=== PATIENT | male | born 1990 | race Two or more races ===

== ENCOUNTER 2017-07-06 18:32 | Emergency (ER) | payer OTHER ==
[2017-07-06 19:00] LABS: APPEARANCE,URINE CLEAR; BILIRUBIN,URINE NEGATIVE (NEGATIVE); GLUCOSE, URINE NEGATIVE (NEGATIVE); KETONES,URINE 20 mg/dL (NEGATIVE); LEUKOCYTE ESTERASE,URINE NEGATIVE (NEGATIVE); NITRITE,URINE NEGATIVE (NEGATIVE); PROTEIN,URINE 30 mg/dL (NEGATIVE); URINE SPECIFIC GRAVITY 1.009
[2017-07-06] MEDS ORDERED: NORMAL SALINE 1000 ML 1,000 ML IV ONE (19:28)
--- NOTE | 2017-07-06 19:29 | ER Document Report ---
ED Medical Screen (RME) - General Chief Complaint: Flank Pain Stated Complaint: ABDOMINAL PAIN Time Seen by Provider: 07/06/17 19:28 Notes: Patient reports left flank pain that was severe last night. He states he had similar pain about 1 month ago and was seen in urgent care. He says they diagnosed him with an infection but is unsure where the infection was. He states he was given ciprofloxacin and has felt better until several days ago. Patient states he has had some nausea but no vomiting or diarrhea. No previous abdominal surgeries. TRAVEL OUTSIDE OF THE [place] IN LAST 30 DAYS: No - Related Data Allergies/Adverse Reactions: No Known Allergies Allergy (Verified 07/06/17 18:40) Past Medical History - Social History Chew tobacco use (# tins/day): No Frequency of alcohol use: weekends Drug Abuse: None Renal/ Medical History: Denies: Hx Peritoneal Dialysis Physical Exam - Vital signs Vitals: Temp Pulse Resp BP Pulse Ox 100.4 F 130 H 22 H 184/119 H 96 07/06/17 18:37 07/06/17 18:37 07/06/17 18:37 07/06/17 18:37 07/06/17 18:37 Course - Vital Signs Vital signs: Temp Pulse Resp BP Pulse Ox 100.4 F 130 H 22 H 184/119 H 96 07/06/17 18:37 07/06/17 18:37 07/06/17 18:37 07/06/17 18:37 07/06/17 18:37 - Laboratory Laboratory results interpreted by me: 07/06/17 18:40 Urine Protein 30 H Urine Ketones 20 H Urine Blood SMALL H Urine Urobilinogen 2.0 H
[2017-07-06 20:14] LABS: VENOUS BLOOD BASE EXCESS 2.8 mmol/L; VENOUS BLOOD HCO3 24.5 mmol/L (20-32); VENOUS BLOOD PCO2 29.7 mmHg (35-63); VENOUS BLOOD PH 7.53 (7.30-7.42)
[2017-07-06 20:16] LABS: ABSOLUTE BASOPHILS # (AUTO) 0.1 10^3/uL (0.0-0.2); ABSOLUTE EOSINOPHILS # (AUTO) 0.5 10^3/uL (0.0-0.6); ABSOLUTE LYMPHOCYTES (AUTO) 1.5 10^3/uL (0.5-4.7); ABSOLUTE NEUT (AUTO) 8.5 10^3/uL (1.7-8.2); BASOPHILS % (AUTO) 1.1 % (0-2); EOSINOPHILS % (AUTO) 4.7 % (0-6); HEMATOCRIT 40.6 % (37.9-51.0); HEMOGLOBIN 14.4 g/dL (13.5-17.0); HGB HCT DIFFERENCE 2.6; LYMPHOCYTES % (AUTO) 12.7 % (13-45); MEAN CORPUSCULAR HGB CONC 35.6 g/dL (32.0-36.0); MEAN CORPUSCULAR VOLUME 96 fl (80-97); MONOCYTES % (AUTO) 8.7 % (3-13); RED BLOOD COUNT 4.25 10^6/uL (4.35-5.55); RED CELL DISTRIBUTION WIDTH 13.2 % (11.5-14.0); SEGMENTED NEUTROPHILS % (AUTO) 72.8 % (42-78); WHITE BLOOD COUNT 11.6 10^3/uL (4.0-10.5)
--- NOTE | 2017-07-06 20:18 | RADIOLOGY REPORT (SQ) ---
EXAM DESCRIPTION: CT ABD/PELVIS NO ORAL OR IV COMPLETED DATE/TIME: 07/06/2017 8:05 pm REASON FOR STUDY: left flank pain COMPARISON: None. TECHNIQUE: CT scan of the abdomen and pelvis performed without intravenous or oral contrast. Images reviewed with lung, soft tissue, and bone windows. Reconstructed coronal and sagittal MPR images revi ewed. All images stored on PACS. All CT scanners at this facility use dose modulation, iterative reconstruction, and/or weight based d osing when appropriate to reduce radiation dose to as low as reasonably achievable (ALARA). [facility]: Dose Right [facility]: CareDose [facility]: Dose Right [facility]: Teradose 4D [facility]: Smart Dualog RADIATION DOSE: Up-to-date CT equipment and radiation dose reduction techniques were employed. CTDIv ol: 18.8 mGy. DLP: 1050 mGy-cm.mGy. LIMITATIONS: None. FINDINGS: LOWER CHEST: There are multiple round pulmonary nodules in the visualized lungs. Highly s uspicious for metastatic disease. NON-CONTRASTED LIVER, SPLEEN, ADRENALS: Evaluation limited by lack of IV contrast. No identified sign ificant masses. PANCREAS: No masses. No peripancreatic inflammatory changes. GALLBLADDER: No identified stones by CT criteria. No inflammatory changes to suggest cholecystitis. RIGHT KIDNEY AND URETER: No suspicious masses. Assessment limited by lack of IV contrast. No signif icant calcifications. No hydronephrosis or hydroureter. LEFT KIDNEY AND URETER: No suspicious masses. Assessment limited by lack of IV contrast. No signifi cant calcifications. No hydronephrosis or hydroureter. AORTA AND RETROPERITONEUM: No aneurysm. No retroperitoneal masses or adenopathy. BOWEL AND PERITONEAL CAVITY: No obvious masses or inflammatory changes. No free fluid. APPENDIX: Normal. PELVIS, BLADDER, AND ABDOMINAL WALL:No abnormal masses. No free fluid. Bladder normal. BONES: No significant findings. OTHER: No other significant finding. IMPRESSION: Multiple pulmonary nodules most consistent with pulmonary metastases. Primary not ident ified. No significant finding in the abdomen or pelvis. COMMENT: Quality ID # [id number]: Final reports with documentation of one or more dose reduction techniques (e.g., Automated exposure control, adjustment of the mA and/or kV according to patient size, use of iterative reconstruction technique) TECHNICAL DOCUMENTATION: JOB ID: [id number]- All Rights Reserved
[2017-07-06 21:19] LABS: APPEARANCE,URINE CLEAR; BILIRUBIN,URINE NEGATIVE (NEGATIVE); GLUCOSE, URINE NEGATIVE (NEGATIVE); KETONES,URINE 20 mg/dL (NEGATIVE); LEUKOCYTE ESTERASE,URINE NEGATIVE (NEGATIVE); NITRITE,URINE NEGATIVE (NEGATIVE); PROTEIN,URINE 100 mg/dL (NEGATIVE); URINE SPECIFIC GRAVITY 1.014
[2017-07-06 21:28] LABS: ALANINE AMINOTRANSFERASE 43 U/L (21-72); ALBUMIN 4.5 g/dL (3.5-5.0); ALKALINE PHOSPHATASE 115 U/L (38-126); ANION GAP 18 (5-19); ASPARTATE AMINO TRANSFERASE 41 U/L (17-59); BILIRUBIN,DIRECT 0.8 mg/dL (0.0-0.4); BILIRUBIN,TOTAL 1.9 mg/dL (0.2-1.3); BLOOD UREA NITROGEN 8 mg/dL (7-20); CALCIUM 8.9 mg/dL (8.4-10.2); CARBON DIOXIDE 26 mmol/L (22-30); CHLORIDE 90 mmol/L (98-107); CREATININE RESULT 0.68 mg/dL (0.52-1.25); GLUCOSE 90 mg/dL (75-110); SODIUM 134.3 mmol/L (137-145); TOTAL PROTEIN 7.4 g/dL (6.3-8.2)
[2017-07-06] MEDS: MAGNESIUM SULFATE/D5W 1 GM/100 ML RTUPB IV SCH (23:32)
--- NOTE | 2017-07-07 00:34 | RADIOLOGY REPORT (SQ) ---
EXAM DESCRIPTION: CTA CHEST COMPLETED DATE/TIME: 07/07/2017 12:03 am REASON FOR STUDY: lung nodules, cancer, rule out PE COMPARISON: 07/06/2017. TECHNIQUE: CT scan of the chest performed using helical scanning technique with dynamic intravenous contrast injection. Images reviewed with lung, soft tissue and bone windows. Reconstructed coronal and sagittal MPR images reviewed. Additional 3 dimensional post-processing performed to develop Maximal Intensity Projection images (NE P). All images stored on PACS. All CT scanners at this facility use dose modulation, iterative reconstruction, and/or weight based d osing when appropriate to reduce radiation dose to as low as reasonably achievable (ALARA). [facility]: Dose Right [facility]: CareDose [facility]: Dose Right [facility]: Teradose 4D [facility]: [employer] CONTRAST TYPE AND DOSE: contrast/concentration: Isovue 370.00 mg/ml; Total Contrast Delivered: 100.0 ml; Total Saline Delivered: 40.0 ml Contrast bolus optimized for the pulmonary arteries. Not diagnostic for the aorta. RENAL FUNCTION: Creatinine 0.7 RADIATION DOSE: . LIMITATIONS: None. FINDINGS: LUNGS AND PLEURA: Numerous bilateral pulmonary masses includes a 4.5 cm mass of the right lower lobe. AORTA AND GREAT VESSELS: No aneurysm. Contrast bolus not optimized for the aorta. HEART: No pericardial effusion. No significant coronary artery calcifications. Right ventricular str ain. PULMONARY ARTERIES: Extensive bilateral pulmonary emboli right more than left involve the right main pulmonary arterial bifurcation with saddle emboli and near occlusive embolus of the right interlobar pulmonary artery. Moderate near occlusive saddle an intraluminal emboli throughout the left lower lo bar secondary and tertiary branches. Near occlusive emboli at the posterior right upper secondary an d tertiary branches. HILAR AND MEDIASTINAL STRUCTURES: No identified masses or abnormal nodes. HARDWARE: The UPPER ABDOMEN: See separate report of the CT of the abdomen. THYROID AND OTHER SOFT TISSUES: No masses. No adenopathy. BONES: No acute or significant finding. 3D MIPS: Confirm above findings. OTHER: No other significant finding. IMPRESSION: 1. Extensive bilateral pulmonary emboli. Likely deep venous thrombosis of the left com mon iliac vein and left lower extremity reported on separate concurrent abnormal CT of the abdomen pe lvis. 2. Numerous pulmonary masses measuring up to 4.5 cm each. Malignancy is of 1st consideration COMMENT: This report was called to Dr. Farrell At00:21 on 07/07/2017. Quality ID # [id number]: Final reports with documentation of one or more dose reduction techniques (e.g., Au tomated exposure control, adjustment of the mA and/or kV according to patient size, use of iterative reconstruction technique) TECHNICAL DOCUMENTATION: JOB ID: [id number] [employer]- All Rights Reserved
--- NOTE | 2017-07-07 00:40 | RADIOLOGY REPORT (SQ) ---
EXAM DESCRIPTION: CT ABD/PELVIS WITH IV ONLY COMPLETED DATE/TIME: 07/07/2017 12:03 am REASON FOR STUDY: rule out cancer or masses COMPARISON: 07/06/2017. TECHNIQUE: CT scan of the abdomen and pelvis performed using helical scanning technique with dynamic intravenous contrast injection. No oral contrast. Images reviewed with lung, soft tissue, and bone windows. Reconstructed coronal and sagittal MPR images reviewed. Delayed images for evaluation of the urinary system also acquired. All images stored on PACS. All CT scanners at this facility use dose modulation, iterative reconstruction, and/or weight based d osing when appropriate to reduce radiation dose to as low as reasonably achievable (ALARA). [facility]: Dose Right [facility]: CareDose [facility]: Dose Right [facility]: Teradose 4D [facility]: [employer] CONTRAST TYPE AND DOSE: 100 cc Isovue 370- low osmolar. RENAL FUNCTION: None required. The patient is less than 50 years old. RADIATION DOSE: Up-to-date CT equipment and radiation dose reduction techniques were employed. CTDIv ol: 28.6 - 34.3 mGy. DLP: 4436 mGy-cm.. LIMITATIONS: None. FINDINGS: LOWER CHEST: See separate report of the CT of the chest. LIVER: Normal size. No masses. No dilated ducts. SPLEEN: Normal size. No focal lesions. PANCREAS: No masses. No significant calcifications. No adjacent inflammation or peripancreatic fluid collections. Pancreatic duct not dilated. GALLBLADDER: No identified stones by CT criteria. No inflammatory changes to suggest cholecystitis. ADRENAL GLANDS: No significant masses or asymmetry. RIGHT KIDNEY AND URETER: No solid masses. No significant calcifications. No hydronephrosis or hyd roureter. LEFT KIDNEY AND URETER: No solid masses. No significant calcifications. No hydronephrosis or hydr oureter. AORTA AND VESSELS: No aneurysm. No dissection. Renal arteries, SMA, celiac without stenosis. Asymmet josephine diminished enhancement of the left common iliac vein and left external iliac vein likely due to t hrombosis. RETROPERITONEUM: No retroperitoneal adenopathy, hemorrhage or masses. BOWEL AND PERITONEAL CAVITY: No masses or inflammatory changes. No free fluid or peritoneal masses. APPENDIX: Normal. PELVIS: No mass. No free fluid. Normal bladder. ABDOMINAL WALL: No masses. No hernias. BONES: No significant or acute findings. OTHER: No other significant finding. IMPRESSION: 1. Likely deep venous thrombosis of the left common iliac and external iliac venous sys tem. 2. Abnormal CT of the chest reported separately including extensive pulmonary emboli enlarged numerous lung masses. COMMENT: This report was called to Dr. Farrell at00:21 on 07/07/2017. TECHNICAL DOCUMENTATION: JOB ID: [id number] Quality ID # [id number]: Final reports with documentation of one or more dose reduction techniques (e.g., Au tomated exposure control, adjustment of the mA and/or kV according to patient size, use of iterative reconstruction technique) 2010 [employer]- All Rights Reserved
--- NOTE | 2017-07-07 00:49 | RADIOLOGY REPORT (SQ) ---
EXAM DESCRIPTION: U/S SCROTUM W/DOPPLER COMPLETED DATE/TIME: 07/07/2017 12:28 am REASON FOR STUDY: concern for testicular cancer COMPARISON: CT, chest abdomen pelvis, 07/06/2017. TECHNIQUE: Static and realtime veras scale imaging of the scrotum and testes. Selected color Doppler and spectral images recorded to document blood flow. LIMITATIONS: None. FINDINGS: RIGHT: TESTICLE: 4.4 cm. Normal size. Normal echotexture. Normal blood flow. No mass. EPIDIDYMIS: Normal. 0.4 cm epididymal cyst -spermatocele. HYDROCELE OR VARICOCELE: No. HERNIA OR EXTRA-TESTICULAR MASS: No. OTHER: No other significant finding. LEFT: TESTICLE: 4.5 cm. Normal size. Normal echotexture. Normal blood flow. No mass. EPIDIDYMIS: Normal. HYDROCELE OR VARICOCELE: No. HERNIA OR EXTRA-TESTICULAR MASS: No. OTHER: No other significant finding. IMPRESSION: NORMAL SCROTAL ULTRASOUND. NO EVIDENCE OF TESTICULAR MASS OR TORSION. TECHNICAL DOCUMENTATION: JOB ID: [id number] [employer]- All Rights Reserved
[2017-07-07] MEDS ORDERED: HEPARIN SOD (PORCINE) 1,000 UNIT/ML 10 ML VIAL IV ONE (01:04)
[2017-07-07] MEDS ORDERED: HEPARIN SODIUM,PORCINE/D5W 25,000 UNIT/250 ML RTUINJ IV PRN (01:04)
--- NOTE | 2017-07-07 01:12 | ER Document Report ---
ED General - General Chief Complaint: Flank Pain Stated Complaint: ABDOMINAL PAIN Time Seen by Provider: 07/06/17 19:28 Notes: Patient is a 27-year-old male who presents with complaint of pain in his left flank. He says is been there for several days. He went to urgent care. They tested his urine and told him that there was some protein in his urine and therefore placed him on Cipro. He says he is only gotten worse now is a temp of 100.4. He therefore came to the ER. He denies any testicular pain or swelling. Denies abdominal pain. He denies any pain in his chest. Denies any headaches. He does not take any medications. He is otherwise healthy. He denies any history of chronic medical problems. TRAVEL OUTSIDE OF THE [place] IN LAST 30 DAYS: No - Related Data Allergies/Adverse Reactions: No Known Allergies Allergy (Verified 07/06/17 18:40) Past Medical History - Social History Smoking Status: Current Every Day Smoker Chew tobacco use (# tins/day): No Frequency of alcohol use: Social Drug Abuse: None Family History: Reviewed & Not Pertinent Renal/ Medical History: Denies: Hx Peritoneal Dialysis Review of Systems - Review of Systems Notes: My Normal Review Basic REVIEW OF SYSTEMS: CONSTITUTIONAL : Denies fever, chills, or sweats. Denies recent illness. EENT: Denies eye, ear, throat, or mouth pain or symptoms. Denies nasal or sinus congestion. CARDIOVASCULAR: Denies chest pain. RESPIRATORY: Denies cough, cold, or chest congestion. Denies shortness of breath, difficulty breathing, or wheezing. GASTROINTESTINAL: Denies abdominal pain. Denies nausea, vomiting, or diarrhea. Denies constipation. Last BM: GENITOURINARY: Denies difficulty urinating, painful urination, burning, frequency, or blood in urine. MUSCULOSKELETAL: Left back and flank pain. SKIN: Denies rash or skin lesions. NEUROLOGICAL: Denies altered mental status or loss of consciousness. Denies headache. Denies weakness or paralysis or loss of use of either side. Denies problems with gait or speech. Denies sensory or motor loss. ALL OTHER SYSTEMS REVIEWED AND NEGATIVE. Physical Exam - Vital signs Vitals: Temp Pulse Resp BP Pulse Ox 100.4 F 130 H 22 H 184/119 H 96 07/06/17 18:37 07/06/17 18:37 07/06/17 18:37 07/06/17 18:37 07/06/17 18:37 - Notes Notes: General Appearance: Well nourished, alert, cooperative, mild acute distress, no obvious discomfort. Vitals: reviewed, See vital signs table. Head: no swelling or tenderness to the head Eyes: PERRL, EOMI, Conjuctiva clear Mouth: No decreasd moisture Neck: Supple, no neck tenderness, No thyromegaly Lungs: No wheezing, No rales, No rhonci, No accessory muscle use, good air exchange bilaterally. Heart: Tachycardic rate, Regular rythm, No murmur, no rub Abdomen: Normal BS, soft, No rigidity, No abdominal tenderness, No guarding, no rebound, no abdominal masses, no organomegaly Genital exam: Normal-appearing testicular exam without masses or redness or swelling. Back: No reproducible pain palpation of the back. Extremities: strength 5/5 in all extremities, good pulses in all extremities, no swelling or tenderness in the extremities, no edema. Skin: warm, dry, appropriate color, no rash Neuro: speech clear, oriented x 3, normal affect, responds appropriately to questions. Course - Re-evaluation Re-evalutation: 07/07/17 01:10 On my initial evaluation the patient did have a CT scan was ordered in triage which showed a large lung masses in the base of the lungs. He is tachycardic and his oxygen saturation is around 93-94%. Therefore of concern for cancer induced pulmonary emboli. CT Paulette O of the chest with contrast runoff into abdomen pelvis shows that the patient has multiple large lung masses as well as multiple pulmonary emboli. Patient also has what is appears to be a large clot in the internal/external iliac. I suspect that this could possibly be related to testicular cancer based on patient's age of 27. I requested an hCG level. They are unable to do an hCG level through the computer system being that that does not allow this on males. The labeler did agree to run the test for me. She called with results and said the hCG quantitative level was negative. I then got the ultrasound testicles which is negative. Therefore suspect that this is highly unlikely to be related to testicular cancer. I will start the patient on a heparin drip so that if there is any indication of bleeding from any of his masses he can be stopped immediately. I have called [facility] to talk to him about potential transfer. The patient will be better suited to assure a medical coding auditor center being that he will need further workup for the exact cause of the masses lungs and also may need bronchoscopy and also may need catheter directed thrombolysis. 07/07/17 01:[address] Kayla Thompson, pathology laboratory aide at [facility], he agrees to accept the patient for transfer. We have placed on heparin drip. We are waiting bed placement and then we will arrange for transport. 07/07/17 02:39 Patient continues to have any further complaints at this time. Heart rate is starting to improve some. Heart rate is now in the 1 teens. Blood pressure is currently 1 4484. Patient is 93% on room air. There is no ground transport available for at least until morning time. He can transported by air. The concern is that he is such a large clot burden would be appropriate for him to be a tertiary care facility in case he does have any deterioration. I think that air transport is appropriate due to the above concerns. 07/07/17 03:29 I performed a final reevaluation the patient. He is doing well. Oxygen saturations are 92-93%. He is in no distress currently. The transport team is arrived to transport him to [facility]. - Vital Signs Vital signs: Temp Pulse Resp BP Pulse Ox 99 F 130 H 25 H 142/93 H 93 07/06/17 22:34 07/06/17 18:37 07/07/17 03:01 07/07/17 03:01 07/07/17 03:01 - Laboratory Result Diagrams: 07/07/17 01:17 07/06/17 21:05 Laboratory results interpreted by me: 07/06/17 07/06/17 07/06/17 18:40 19:55 19:55 WBC 11.6 H RBC 4.25 L MCH 34.0 H Lymphocytes % 12.7 L Absolute Neutrophils 8.5 H VBG pH 7.53 H VBG pCO2 29.7 L Sodium Potassium Chloride Magnesium Total Bilirubin Direct Bilirubin NT-Pro-B Natriuret Pep Urine Protein 30 H Urine Ketones 20 H Urine Blood SMALL H Urine Urobilinogen 2.0 H 07/06/17 07/06/17 07/06/17 19:55 21:05 21:05 WBC RBC MCH Lymphocytes % Absolute Neutrophils VBG pH VBG pCO2 Sodium 134.3 L Potassium 3.0 L* Chloride 90 L Magnesium 1.0 L* Total Bilirubin 1.9 H Direct Bilirubin 0.8 H NT-Pro-B Natriuret Pep Urine Protein 100 H Urine Ketones 20 H Urine Blood SMALL H Urine Urobilinogen 4.0 H 07/07/17 07/07/17 01:17 01:17 WBC RBC 4.09 L MCH 34.0 H Lymphocytes % Absolute Neutrophils VBG pH VBG pCO2 Sodium Potassium Chloride Magnesium Total Bilirubin Direct Bilirubin NT-Pro-B Natriuret Pep 1960 H Urine Protein Urine Ketones Urine Blood Urine Urobilinogen Discharge - Discharge Clinical Impression: Lung mass, Hypomagnesemia, Hypokalemia Pulmonary emboli Qualifiers: Pulmonary embolism type: other Chronicity: acute Acute cor pulmonale presence: without acute cor pulmonale Qualified Code(s): I26.99 - Other pulmonary embolism without acute cor pulmonale Condition: Stable Disposition: [facility]
[2017-07-07 01:26] LABS: ABSOLUTE BASOPHILS # (AUTO) 0.1 10^3/uL (0.0-0.2); ABSOLUTE EOSINOPHILS # (AUTO) 0.5 10^3/uL (0.0-0.6); ABSOLUTE LYMPHOCYTES (AUTO) 1.5 10^3/uL (0.5-4.7); ABSOLUTE MONOCYTES (AUTO) 0.9 10^3/uL (0.1-1.4); ABSOLUTE NEUT (AUTO) 6.3 10^3/uL (1.7-8.2); BASOPHILS % (AUTO) 0.6 % (0-2); EOSINOPHILS % (AUTO) 5.1 % (0-6); HEMATOCRIT 38.7 % (37.9-51.0); HEMOGLOBIN 13.9 g/dL (13.5-17.0); LYMPHOCYTES % (AUTO) 16.3 % (13-45); MEAN CORPUSCULAR HGB CONC 35.9 g/dL (32.0-36.0); MEAN CORPUSCULAR VOLUME 95 fl (80-97); MONOCYTES % (AUTO) 9.5 % (3-13); RED BLOOD COUNT 4.09 10^6/uL (4.35-5.55); RED CELL DISTRIBUTION WIDTH 13.2 % (11.5-14.0); SEGMENTED NEUTROPHILS % (AUTO) 68.5 % (42-78); WHITE BLOOD COUNT 9.2 10^3/uL (4.0-10.5)
[2017-07-07 01:33] LABS: PROTHROMBIN TIME 14.2 SEC (11.4-15.4)
[2017-07-07 01:34] LABS: PARTIAL THROMBOPLASTIN TIME 33.1 SEC (23.5-35.8)
[2017-07-07] MEDS: MAGNESIUM SULFATE/D5W 1 GM/100 ML RTUPB IV SCH (02:08)
[2017-07-07 02:20] LABS: CREATINE KINASE MB < 0.22 ng/mL (<4.55); TROPONIN I 0.014 ng/mL
[2017-07-07] MEDS ORDERED: POTASSIUM CHLORIDE 10 MEQ TABLET.SA PO ONE (02:40)
[2017-07-07 03:34] VITALS: BP 159/106
== END 2017-07-07 03:55 | disposition short-term general hospital (02) ==
LOC: ER 18:32
DX: R91.8 Other nonspecific abnormal finding of lung field (principal); E83.42 Hypomagnesemia; E87.6 Hypokalemia; R10.9 Unspecified abdominal pain; F17.200 Nicotine dependence, unspecified, uncomplicated; R50.9 Fever, unspecified
CPT/HCPCS: 99285; 96365; 96366; 96367; 36415; 87040; 87086; 82553; 82550; 83735; 85025; 85610; 85730; 80053; 81001; 84484; 82803; 83605; 83880; 76870; 93976; 71275; 74176; 74177; J1644 ×2; J3475 ×2